=== PATIENT | male | born 1995 | race Caucasian/White ===

== ENCOUNTER 2021-03-30 17:08 | Emergency (ER) | payer OTHER ==
[~2021-03-30] VITALS: Ht 172.7 cm; Wt 56.7 kg
[2021-03-30] MEDS ORDERED: DOXYCYCLINE 10100 MG PO (18:13)
[2021-03-30 18:30] VITALS: BP 119/79
== END 2021-03-30 18:31 | disposition home or self-care (01) ==
LOC: M.ERS 17:08
DX: S61.011A Laceration without foreign body of right thumb without damage to nail, initial encounter (principal); W22.8XXA Striking against or struck by other objects, initial encounter; Y93.89 Activity, other specified; Y92.89 Other specified places as the place of occurrence of the external cause; Y99.8 Other external cause status